=== PATIENT | female | born 1990 | race Caucasian/White ===

== ENCOUNTER 2016-08-03 13:49 | Emergency (ER) | payer OTHER ==
[~2016-08-03] VITALS: Ht 162.5 cm; Wt 78.5 kg
[~2016-08-03 13:49] MED LIST: ALAVERT D-12 HO1 T12 PO; AMOXICILLIN500 M2 PO; AMOXICILLIN500 MG PO; AMOXIL500 MG PO; ANAPROX DS550 MG PO; AUGMENTIN 875 M1 TAB PO; AUGMENTIN 875875 MG PO; AUGMENTIN ES-6100 ML PO; AVPAK AZITHROM250 M1 PO; BACTRIM DS 8001 TA1 PO; CELEXA20 MG PO; CIPRO500 MG PO; CLARITIN10 MG PO; CLARITIN5 MG/5 ML PO; CLINDAMYCIN150 MG PO; COLACE CLEAR50 MG PO; CYCLOBENZAPRINE10 MG PO; DICLEGIS DR 101 EACH PO; DOXYCYCLINE MO100 MG PO; DOXYCYCLINE100 M2 PO; Elocon 0.1% Cre15 GM T; FEXOFENADINE HC60 MG PO; FLAGYL500 MG PO; FLONASE0.05 MG/AC NS; HYDROCODONE BIT1 T11 PO; IBU800 M1 PO; IBUPROFEN200 MG PO; KEFLEX250 MG/5 M PO; KEFLEX500 MG PO; LOTRIMIN1% TP; MACROBID100 M1 PO; MEDROL DOSEPAK4 MG PO; METHYLPRED-DP4 MG PO; MOTRIN100 MG/5 M PO; MOTRIN600 MG PO; MOTRIN800 MG PO; Motrin,Rufen800 MG PO; NAPROSYN500 MG PO; NKHM; NKHM PO; NORCO 325 MG-51 TAB PO; NORCO 5-325 TA1 EACH PO; PARAFON FORTE500 MG PO; PERCOCET 325 MG1 TA2 PO; PHENERGAN W/DM120 ML PO; PREDNICOT10 MG PO; PREDNICOT20 MG PO; PRENATAL1 TA3 PO; PYRIDIUM200 MG PO; Phenergan25 MG PO; ROXICET 325 MG/55 ML PO; SINGULAIR10 MG PO; SUDAFED60 MG PO; TOBRADEX 0.1%-0.5 ML OPH; TRAMADOL HCL50 MG PO; ULTRAM50 MG PO; VENLAFAXINE37.5 MG PO; VENTOLIN H0.09 MG/AC INH; VICODIN 5/500 505 MG PO; VOLTAREN75 MG PO; ZITHROMAX Z PA250 MG PO; ZITHROMAX250 MG PO; ZOFRAN ODT4 MG SL; ZOFRAN4 MG PO; ZYRTEC10 MG PO; Zofran4 MG PO
[2016-08-03] MEDS ORDERED: ALLEGRA ALLERGY60 M2 PO (13:56)
[2016-08-03] MEDS ORDERED: AMOXICILLIN500 M2 PO (14:16)
== END 2016-08-03 14:51 | disposition home or self-care (01) ==
LOC: ED 13:49
DX: O99.519 Diseases of the respiratory system complicating pregnancy, unspecified trimester (principal); O99.330 Smoking (tobacco) complicating pregnancy, unspecified trimester; J01.90 Acute sinusitis, unspecified; F17.200 Nicotine dependence, unspecified, uncomplicated

== ENCOUNTER 2016-08-27 20:44 | Emergency (ER) | payer OTHER ==
[~2016-08-27] VITALS: Ht 162.5 cm; Wt 78.0 kg
[~2016-08-27 20:44] MED LIST changes: +ALLEGRA ALLERGY60 M2 PO
[2016-08-27] MEDS ORDERED: AMOXICILLIN500 M2 PO (21:48)
== END 2016-08-27 21:52 | disposition home or self-care (01) ==
LOC: ED 20:44
DX: O99.513 Diseases of the respiratory system complicating pregnancy, third trimester (principal); J06.9 Acute upper respiratory infection, unspecified; F17.200 Nicotine dependence, unspecified, uncomplicated; Z90.49 Acquired absence of other specified parts of digestive tract; Z3A.00 Weeks of gestation of pregnancy not specified

== ENCOUNTER 2017-02-11 13:55 | Emergency (ER) | payer OTHER ==
[~2017-02-11] VITALS: Ht 162.5 cm; Wt 77.1 kg
[2017-02-11 14:27] LABS: BILIRUBIN NEGATIVE (NEGATIVE); BLOOD NEGATIVE (NEGATIVE); CLARITY CLEAR (CLEAR); COLOR YELLOW (YELLOW); GLUCOSE NEGATIVE (NEGATIVE); KETONE NEGATIVE (NEGATIVE); LEUKO ESTERASE NEGATIVE (NEGATIVE); NITRITE NEGATIVE (NEGATIVE); SPECIFIC GRAVITY <= 1.005 (1.005-1.030); UROBILINOGEN 0.2 E.U./dl (0.2-1.0)
[2017-02-11 14:36] LABS: BACTERIA 2+; RBC 0-2 rbc/hpf (0-2)
[2017-02-11 15:12] LABS: BASO # 0.1 10*3/uL (0.0-0.1); BASO % 0.5 % (0.0-1.0); EOS # 0.4 10*3/uL (0.0-0.4); EOS % 3.2 % (1.0-4.0); HEMATOCRIT 37.8 % (37.0-47.0); HEMOGLOBIN 11.9 g/dl (12.0-16.0); LYMPH # 3.4 10*3/uL (1.3-4.4); MEAN CELL VOLUME 86.5 fl (81.0-99.0); MEAN CORPUSCULAR HGB 27.2 pg (27.0-31.0); MEAN CORPUSCULAR HGB CONC 31.5 g/dl (33.0-37.0); MEAN PLATELET VOLUME 9.2 fl (9.6-12.3); MONO # 0.8 10*3/uL (0.1-1.0); MONO % 6.2 % (3.0-9.0); NEUT # 7.4 10*3/uL (2.3-7.9); NEUT % 61.6 % (47.0-73.0); PLATELET COUNT AUTOMATED 452 10*3/uL (130-400); RED BLOOD COUNT 4.37 10*6/uL (4.10-5.10); RED CELL DISTRI WIDTH 15.2 % (0-14.5)
[2017-02-11 15:26] LABS: ALBUMIN 3.5 gm/dl (3.1-4.5); ALKALINE PHOSPHATASE 76 U/L (45-117); BUN 8 mg/dl (7-24); CHLORIDE 110 mmol/L (98-107); CREATININE 0.66 mg/dL (0.55-1.02); POTASSIUM 3.9 mmol/L (3.5-5.1); SGOT/AST 12 IU/L (3-35); SGPT/ALT 16 U/L (12-78); SODIUM 140 mmol/L (136-145); TOTAL PROTEIN 7.1 gm/dL (6.4-8.2)
[2017-02-11] MEDS ORDERED: ZOFRAN4 MG PO (16:08)
== END 2017-02-11 16:10 | disposition home or self-care (01) ==
LOC: ED 13:55
PROVIDERS: Nurse Practitioner
DX: K29.70 Gastritis, unspecified, without bleeding (principal); F17.200 Nicotine dependence, unspecified, uncomplicated; Z88.8 Allergy status to other drugs, medicaments and biological substances; Z79.899 Other long term (current) drug therapy; Z90.49 Acquired absence of other specified parts of digestive tract; Z90.89 Acquired absence of other organs

== ENCOUNTER 2017-03-08 20:06 | Emergency (ER) | payer OTHER ==
[~2017-03-08] VITALS: Ht 162.5 cm; Wt 77.1 kg
[2017-03-08] MEDS ORDERED: CEPHALEXIN500 M1 PO (21:21)
== END 2017-03-08 21:33 | disposition home or self-care (01) ==
LOC: ED 20:06
DX: L03.031 Cellulitis of right toe (principal); F17.200 Nicotine dependence, unspecified, uncomplicated; Z79.899 Other long term (current) drug therapy; Z90.49 Acquired absence of other specified parts of digestive tract; Z90.89 Acquired absence of other organs

== ENCOUNTER 2017-06-25 18:31 | Emergency (ER) | payer OTHER ==
[~2017-06-25] VITALS: Wt 82.6 kg
[~2017-06-25 18:31] MED LIST changes: +CEPHALEXIN500 M1 PO
[2017-06-25 19:33] LABS: BILIRUBIN NEGATIVE (NEGATIVE); BLOOD TRACE-INTACT (NEGATIVE); CLARITY CLEAR (CLEAR); COLOR YELLOW (YELLOW); GLUCOSE NEGATIVE (NEGATIVE); KETONE NEGATIVE (NEGATIVE); LEUKO ESTERASE NEGATIVE (NEGATIVE); NITRITE NEGATIVE (NEGATIVE); PH 6.5 (5.0-9.0)
[2017-06-25 19:44] LABS: HEMATOCRIT 34.3 % (37.0-47.0); HEMOGLOBIN 11.2 g/dl (12.0-16.0); MEAN CELL VOLUME 92.5 fl (81.0-99.0); MEAN CORPUSCULAR HGB 30.2 pg (27.0-31.0); MEAN CORPUSCULAR HGB CONC 32.7 g/dl (33.0-37.0); MEAN PLATELET VOLUME 9.2 fl (9.6-12.3); PLATELET COUNT AUTOMATED 389 10*3/uL (130-400); RED BLOOD COUNT 3.71 10*6/uL (4.10-5.10); RED CELL DISTRI WIDTH 14.1 % (0-14.5); WHITE BLOOD COUNT 13.6 10*3/uL (4.8-10.8)
[2017-06-25 19:54] LABS: BACTERIA 1+
[2017-06-25 20:01] LABS: ALBUMIN 2.6 gm/dl (3.1-4.5); ALKALINE PHOSPHATASE 85 U/L (45-117); BUN 3 mg/dl (7-24); CHLORIDE 105 mmol/L (98-107); CREATININE 0.45 mg/dL (0.55-1.02); POTASSIUM 3.5 mmol/L (3.5-5.1); SGOT/AST 11 IU/L (3-35); SGPT/ALT 9 U/L (12-78); SODIUM 135 mmol/L (136-145); TOTAL PROTEIN 6.6 gm/dL (6.4-8.2)
[2017-06-25 20:09] LABS: PLATELET SUFFICIENCY NORMAL (NORMAL); TOTAL CELLS COUNTED 100 #CELLS
== END 2017-06-25 20:18 | disposition home or self-care (01) ==
LOC: ED 18:31
PROVIDERS: Student in an Organized Health Care Education/Training Program
DX: O26.892 Other specified pregnancy related conditions, second trimester (principal); O21.9 Vomiting of pregnancy, unspecified; R82.71 Bacteriuria; Z3A.24 24 weeks gestation of pregnancy

== ENCOUNTER 2017-07-29 21:22 | Emergency (ER) | payer OTHER ==
[~2017-07-29] VITALS: Ht 165.1 cm; Wt 81.6 kg
== END 2017-07-29 21:52 | disposition home or self-care (01) ==
LOC: ED 21:22
DX: M25.562 Pain in left knee (principal)

== ENCOUNTER 2017-08-20 16:59 | Emergency (ER) | payer OTHER ==
[~2017-08-20] VITALS: Ht 162.5 cm; Wt 83.9 kg
[2017-08-20] MEDS ORDERED: AUGMENTIN 875-875 MG PO (17:10)
== END 2017-08-20 17:53 | disposition home or self-care (01) ==
LOC: ED 16:59
DX: O26.893 Other specified pregnancy related conditions, third trimester (principal); L02.415 Cutaneous abscess of right lower limb; O99.333 Smoking (tobacco) complicating pregnancy, third trimester; Z90.49 Acquired absence of other specified parts of digestive tract; Z3A.28 28 weeks gestation of pregnancy

== ENCOUNTER 2018-07-19 17:39 | Emergency (ER) | payer OTHER ==
[~2018-07-19] VITALS: Ht 162.5 cm; Wt 81.6 kg
[~2018-07-19 17:39] MED LIST changes: +AUGMENTIN 875-875 MG PO
[2018-07-19 18:27] LABS: BILIRUBIN NEGATIVE (NEGATIVE); BLOOD NEGATIVE (NEGATIVE); CLARITY SL CLOUDY (CLEAR); COLOR YELLOW (YELLOW); GLUCOSE NEGATIVE (NEGATIVE); KETONE 1+ (NEGATIVE); LEUKO ESTERASE TRACE (NEGATIVE); NITRITE NEGATIVE (NEGATIVE); PH 6.5 (5.0-9.0)
[2018-07-19 18:36] LABS: BASO % 0.2 % (0.0-1.0); EOS # 0.1 10*3/uL (0.0-0.4); EOS % 0.5 % (1.0-4.0); HEMATOCRIT 35.1 % (37.0-47.0); HEMOGLOBIN 11.7 g/dl (12.0-16.0); LYMPH % 8.9 % (27.0-41.0); MEAN CORPUSCULAR HGB CONC 33.3 g/dl (33.0-37.0); MEAN PLATELET VOLUME 9.3 fl (9.6-12.3); MONO # 0.4 10*3/uL (0.1-1.0); MONO % 3.8 % (3.0-9.0); NEUT # 9.3 10*3/uL (2.3-7.9); NEUT % 86.2 % (47.0-73.0); PLATELET COUNT AUTOMATED 362 10*3/uL (130-400); RED CELL DISTRI WIDTH 14.7 % (0-14.5); WHITE BLOOD COUNT 10.8 10*3/uL (4.8-10.8)
[2018-07-19 18:37] LABS: BACTERIA 2+; EPITHELIAL CELLS 20-25; MUCOUS TRACE; RBC 0-2 rbc/hpf (0-2)
[2018-07-19 18:51] LABS: ALBUMIN 2.8 gm/dl (3.1-4.5); ALKALINE PHOSPHATASE 73 U/L (45-117); BUN 4 mg/dl (7-24); CHLORIDE 108 mmol/L (98-107); CREATININE 0.49 mg/dL (0.55-1.02); LIPASE 54 U/L (73-393); POTASSIUM 3.3 mmol/L (3.5-5.1); SGOT/AST 10 IU/L (3-35); SGPT/ALT 16 U/L (12-78); SODIUM 138 mmol/L (136-145); TOTAL PROTEIN 6.8 gm/dL (6.4-8.2)
[2018-07-19] MEDS ORDERED: MACROBID100 M1 PO (19:54)
== END 2018-07-19 20:26 | disposition home or self-care (01) ==
LOC: ED 17:39
PROVIDERS: Nurse Practitioner Family
DX: O99.611 Diseases of the digestive system complicating pregnancy, first trimester (principal); A08.4 Viral intestinal infection, unspecified; O23.41 Unspecified infection of urinary tract in pregnancy, first trimester; O99.331 Smoking (tobacco) complicating pregnancy, first trimester; Z3A.09 9 weeks gestation of pregnancy; Z90.49 Acquired absence of other specified parts of digestive tract; Z79.2 Long term (current) use of antibiotics

== ENCOUNTER → 2018-08-04 | Outpatient (CLI) | payer OTHER ==
[~2018-08-04] MED LIST changes: +AMOXICILLIN500 M3 PO
== END | disposition home or self-care (01) ==
LOC: US 17:00
DX: O99.332 Smoking (tobacco) complicating pregnancy, second trimester (principal); O99.322 Drug use complicating pregnancy, second trimester; Z3A.18 18 weeks gestation of pregnancy

== ENCOUNTER 2018-09-01 19:43 | Emergency (ER) | payer OTHER ==
[~2018-09-01] VITALS: Ht 162.5 cm; Wt 82.6 kg
[~2018-09-01 19:43] MED LIST changes: -AMOXICILLIN500 M3 PO
[2018-09-01] MEDS ORDERED: AMOXICILLIN500 M3 PO (20:55)
== END 2018-09-01 21:10 | disposition home or self-care (01) ==
LOC: ED 19:43
DX: O26.892 Other specified pregnancy related conditions, second trimester (principal); O99.512 Diseases of the respiratory system complicating pregnancy, second trimester; O99.332 Smoking (tobacco) complicating pregnancy, second trimester; R51 Headache; R68.84 Jaw pain; K13.79 Other lesions of oral mucosa; J02.9 Acute pharyngitis, unspecified; F17.200 Nicotine dependence, unspecified, uncomplicated; Z3A.22 22 weeks gestation of pregnancy

== ENCOUNTER → 2018-12-09 | Outpatient (CLI) | payer OTHER ==
[~2018-12-09] MED LIST changes: +ALLEGRA-D 24 H1 EACH PO; +AMOXICILLIN500 M3 PO; +FEROSUL325 MG PO; +PROAIR HFA8.5 GM INH; +TESSALON PERLE100 M1 PO
== END | disposition home or self-care (01) ==
LOC: US 11:29
DX: Z34.93 Encounter for supervision of normal pregnancy, unspecified, third trimester (principal); Z3A.37 37 weeks gestation of pregnancy

== ENCOUNTER 2019-01-07 20:12 | Emergency (ER) | payer OTHER ==
[~2019-01-07] VITALS: Ht 162.5 cm; Wt 81.6 kg
[~2019-01-07 20:12] MED LIST changes: -ALLEGRA-D 24 H1 EACH PO; -FEROSUL325 MG PO; -PROAIR HFA8.5 GM INH; -TESSALON PERLE100 M1 PO
[2019-01-07] MEDS ORDERED: FEROSUL325 MG PO (20:30)
[2019-01-07] MEDS ORDERED: ZITHROMAX250 MG PO (20:36)
[2019-01-07] MEDS ORDERED: TESSALON PERLE100 M1 PO (20:36)
[2019-01-07] MEDS ORDERED: ALLEGRA-D 24 H1 EACH PO (20:36)
[2019-01-07] MEDS ORDERED: PROAIR HFA8.5 GM INH (20:36)
== END 2019-01-07 20:47 | disposition home or self-care (01) ==
LOC: ED 20:12
DX: O99.53 Diseases of the respiratory system complicating the puerperium (principal); J06.9 Acute upper respiratory infection, unspecified; H66.91 Otitis media, unspecified, right ear; O99.335 Smoking (tobacco) complicating the puerperium; Z79.899 Other long term (current) drug therapy

== ENCOUNTER → 2019-02-05 | Outpatient (CLI) | payer OTHER ==
[~2019-02-05] MED LIST changes: +ALLEGRA-D 24 H1 EACH PO; +FEROSUL325 MG PO; +IBU800 MG PO; +PROAIR HFA8.5 GM INH; +TESSALON PERLE100 M1 PO
== END | disposition home or self-care (01) ==
LOC: LAB 14:29
DX: Z30.2 Encounter for sterilization (principal)

== ENCOUNTER → 2019-02-12 | Day surgery (SDC) | payer OTHER ==
[~2019-02-12] VITALS: Ht 162.5 cm; Wt 77.1 kg
[2019-02-12 06:37] VITALS: BP 119/75
[2019-02-12 08:33] VITALS: BP 130/76
[2019-02-12 08:48] VITALS: BP 126/73
--- NOTE | 2019-02-12 08:54 | NUR ---
PATIENT STATES SHE HAS PAIN 9/10.
[2019-02-12 09:03] VITALS: BP 120/65
--- NOTE | 2019-02-12 09:03 | NUR ---
PATIENT RATES PAIN 6/10 AFTER MEDICATION. REQUESTS ADDITIONAL
--- NOTE | 2019-02-12 09:07 | NUR ---
PATIENT STATES HER PAINIS MANAGBLE NOW RATES AT 5/10
[2019-02-12 09:18] VITALS: BP 117/61
[2019-02-12 09:33] VITALS: BP 117/73
== END | disposition home or self-care (01) ==
LOC: SDC 02-03 14:00
DX: Z30.2 Encounter for sterilization (principal); F41.9 Anxiety disorder, unspecified; F32.9 Major depressive disorder, single episode, unspecified; J44.9 Chronic obstructive pulmonary disease, unspecified; F17.210 Nicotine dependence, cigarettes, uncomplicated; Z98.890 Other specified postprocedural states

== ENCOUNTER 2019-03-02 20:31 | Emergency (ER) | payer OTHER ==
[~2019-03-02] VITALS: Ht 162.5 cm; Wt 77.1 kg
[2019-03-02] MEDS ORDERED: SEPTDS PO (21:27)
[2019-03-02] MEDS ORDERED: CEPHALEXIN500 M1 PO (21:27)
== END 2019-03-02 21:35 | disposition home or self-care (01) ==
LOC: ED 20:31
DX: L02.411 Cutaneous abscess of right axilla (principal); F17.200 Nicotine dependence, unspecified, uncomplicated; Z91.041 Radiographic dye allergy status; Z79.899 Other long term (current) drug therapy; Z90.49 Acquired absence of other specified parts of digestive tract

== ENCOUNTER 2019-07-22 15:48 | Emergency (ER) | payer OTHER ==
[~2019-07-22] VITALS: Ht 162.5 cm; Wt 77.1 kg
[~2019-07-22 15:48] MED LIST changes: +SEPTDS PO
== END 2019-07-22 17:45 | disposition home or self-care (01) ==
LOC: ED 15:48
DX: S93.402A Sprain of unspecified ligament of left ankle, initial encounter (principal); F32.9 Major depressive disorder, single episode, unspecified; F17.200 Nicotine dependence, unspecified, uncomplicated; Z88.8 Allergy status to other drugs, medicaments and biological substances; Z79.899 Other long term (current) drug therapy; X50.1XXA Overexertion from prolonged static or awkward postures, initial encounter; Y93.89 Activity, other specified; Y92.89 Other specified places as the place of occurrence of the external cause; Y99.8 Other external cause status

== ENCOUNTER → 2019-11-27 | Emergency (ER) | payer OTHER ==
[~2019-11-27] VITALS: Wt 86.2 kg
== END ==
LOC: ED 19:44
DX: L02.415 Cutaneous abscess of right lower limb (principal); F32.9 Major depressive disorder, single episode, unspecified; F17.200 Nicotine dependence, unspecified, uncomplicated; Z88.8 Allergy status to other drugs, medicaments and biological substances; Z79.899 Other long term (current) drug therapy

== ENCOUNTER 2021-08-03 13:51 | Emergency (ER) | payer OTHER ==
[~2021-08-03] VITALS: Wt 90.7 kg
== END 2021-08-03 14:47 | disposition home or self-care (01) ==
LOC: ED 13:51
DX: S05.01XA Injury of conjunctiva and corneal abrasion without foreign body, right eye, initial encounter (principal); Z91.041 Radiographic dye allergy status; Z90.49 Acquired absence of other specified parts of digestive tract; Z90.89 Acquired absence of other organs; Z98.890 Other specified postprocedural states; Z87.891 Personal history of nicotine dependence; W51.XXXA Accidental striking against or bumped into by another person, initial encounter; Y93.89 Activity, other specified; Y92.89 Other specified places as the place of occurrence of the external cause; Y99.8 Other external cause status

== ENCOUNTER 2022-03-06 12:05 | Emergency (ER) | payer OTHER ==
[~2022-03-06] VITALS: Ht 162.5 cm; Wt 88.5 kg
[2022-03-06] MEDS ORDERED: PERCOCET 5-3251 EACH PO (13:35)
[2022-03-08] MEDS ORDERED: Percocet 325 MG1 TAB PO (07:10)
== END 2022-03-06 14:40 | disposition home or self-care (01) ==
LOC: ED 12:05
DX: S52.592A Other fractures of lower end of left radius, initial encounter for closed fracture (principal); Z91.040 Latex allergy status; Z98.51 Tubal ligation status; Z90.49 Acquired absence of other specified parts of digestive tract; W10.8XXA Fall (on) (from) other stairs and steps, initial encounter; Y93.89 Activity, other specified; Y92.89 Other specified places as the place of occurrence of the external cause; Y99.8 Other external cause status

== ENCOUNTER → 2022-03-08 | Day surgery (SDC) | payer OTHER ==
[2022-03-07 14:35] VITALS: BP 140/90
[2022-03-07 15:57] LABS: CHLORIDE 106 mmol/L (98-107); POTASSIUM 3.6 mmol/L (3.4-5.1)
[2022-03-07 15:59] LABS: BUN < 5 mg/dl (9-23)
[~2022-03-08] VITALS: Ht 162.5 cm; Wt 88.5 kg
[~2022-03-08] MED LIST changes: +PERCOCET 5-3251 EACH PO; +Percocet 325 MG1 TAB PO
[2022-03-08 07:11] VITALS: BP 101/59
[2022-03-08 09:34] VITALS: BP 119/67
[2022-03-08 09:50] VITALS: BP 130/70
[2022-03-08 10:05] VITALS: BP 120/88
[2022-03-08 10:19] VITALS: BP 114/62
[2022-03-08 10:35] VITALS: BP 116/60
== END | disposition home or self-care (01) ==
LOC: SDC 03-07 14:00
PROVIDERS: ATTEND Orthopaedic Surgery
DX: S52.552A Other extraarticular fracture of lower end of left radius, initial encounter for closed fracture (principal); S52.532A Colles' fracture of left radius, initial encounter for closed fracture; F41.9 Anxiety disorder, unspecified; F31.9 Bipolar disorder, unspecified; F43.10 Post-traumatic stress disorder, unspecified; F17.210 Nicotine dependence, cigarettes, uncomplicated; W10.9XXA Fall (on) (from) unspecified stairs and steps, initial encounter; Y93.89 Activity, other specified; Y92.89 Other specified places as the place of occurrence of the external cause; Y99.8 Other external cause status

== ENCOUNTER → 2022-03-14 | Outpatient (CLI) | payer OTHER | END | disposition home or self-care (01) | LOC: RAD 11:09 | PROVIDERS: ATTEND Orthopaedic Surgery | DX: S52.532A Colles' fracture of left radius, initial encounter for closed fracture (principal); X58.XXXA Exposure to other specified factors, initial encounter; Y93.89 Activity, other specified; Y92.89 Other specified places as the place of occurrence of the external cause; Y99.8 Other external cause status ==

== ENCOUNTER → 2022-04-19 | Outpatient (CLI) | payer OTHER | END | disposition home or self-care (01) | LOC: ORTHO 10:35 | PROVIDERS: ATTEND Orthopaedic Surgery | DX: S52.532D Colles' fracture of left radius, subsequent encounter for closed fracture with routine healing (principal); X58.XXXD Exposure to other specified factors, subsequent encounter ==

== ENCOUNTER 2022-05-24 10:17 | Emergency (ER) | payer OTHER ==
[~2022-05-24] VITALS: Wt 95.3 kg
== END 2022-05-24 12:22 | disposition home or self-care (01) ==
LOC: ED 10:17
DX: H60.91 Unspecified otitis externa, right ear (principal); Z91.041 Radiographic dye allergy status; Z90.89 Acquired absence of other organs; Z90.49 Acquired absence of other specified parts of digestive tract; Z87.891 Personal history of nicotine dependence; Z98.890 Other specified postprocedural states; Z90.711 Acquired absence of uterus with remaining cervical stump

== ENCOUNTER 2023-05-27 09:53 | Emergency (ER) | payer OTHER ==
[~2023-05-27] VITALS: Ht 162.5 cm; Wt 79.4 kg
[2023-05-27] MEDS ORDERED: Acetaminophen/Hydrocodone 5 MG/325 MG TABLET PO ONE (10:45)
== END 2023-05-27 12:41 | disposition home or self-care (01) ==
LOC: ED 09:53
DX: S92.352A Displaced fracture of fifth metatarsal bone, left foot, initial encounter for closed fracture (principal); Z88.8 Allergy status to other drugs, medicaments and biological substances; Z91.041 Radiographic dye allergy status; Z90.49 Acquired absence of other specified parts of digestive tract; Z90.89 Acquired absence of other organs; Z98.890 Other specified postprocedural states; Z72.0 Tobacco use; W10.8XXA Fall (on) (from) other stairs and steps, initial encounter; Y93.01 Activity, walking, marching and hiking; Y92.89 Other specified places as the place of occurrence of the external cause; Y99.8 Other external cause status

== ENCOUNTER → 2023-06-10 | Outpatient (CLI) | payer OTHER | END | disposition home or self-care (01) | LOC: MRI 01:31 | PROVIDERS: ATTEND Orthopaedic Surgery | DX: M84.375A Stress fracture, left foot, initial encounter for fracture (principal); S93.492D Sprain of other ligament of left ankle, subsequent encounter; M79.89 Other specified soft tissue disorders; W19.XXXD Unspecified fall, subsequent encounter ==

== ENCOUNTER → 2023-12-19 | Outpatient (CLI) | payer OTHER ==
[2023-12-19 09:06] LABS: BASO # 0.1 10*3/uL (0.0-0.1); BASO % 0.7 % (0.0-1.0); EOS # 0.3 10*3/uL (0.0-0.4); EOS % 2.8 % (1.0-4.0); MEAN CELL VOLUME 93.6 fl (81.0-99.0); MEAN CORPUSCULAR HGB 30.4 pg (27.0-31.0); MEAN CORPUSCULAR HGB CONC 32.4 g/dl (33.0-37.0); MEAN PLATELET VOLUME 9.6 fl (9.6-12.3); MONO # 0.5 10*3/uL (0.1-1.0); NEUT # 6.5 10*3/uL (2.3-7.9); NEUT % 62.3 % (47.0-73.0); PLATELET COUNT AUTOMATED 356 10*3/uL (130-400); RED BLOOD COUNT 4.38 10*6/uL (4.10-5.10); RED CELL DISTRI WIDTH 13.3 % (0-14.5); WHITE BLOOD COUNT 10.4 10*3/uL (4.8-10.8)
[2023-12-19 09:39] LABS: ALKALINE PHOSPHATASE 78 U/L (46-116); BUN 8 mg/dl (9-23); CHLORIDE 108 mmol/L (98-107); CHOLESTEROL 125 mg/dL (<200); LDL CHOLESTEROL 76 mg/dL (9-159); POTASSIUM 3.7 mmol/L (3.4-5.1); SGPT/ALT 11 U/L (5-49); TRIGLYCERIDES 60 mg/dl (<150)
[2023-12-19 10:26] LABS: VITAMIN D, 25-HYDROXY 28.3 ng/mL (30-100)
== END | disposition home or self-care (01) ==
LOC: LAB 08:49
PROVIDERS: ATTEND Internal Medicine
DX: F41.9 Anxiety disorder, unspecified (principal); F32.2 Major depressive disorder, single episode, severe without psychotic features; E55.9 Vitamin D deficiency, unspecified